=== PATIENT | male | born 1985 | race Caucasian/White ===

== ENCOUNTER 2017-04-04 06:26 | Emergency (ER) | payer MEDICAID ==
[~2017-04-04] VITALS: Ht 172.7 cm; Wt 90.0 kg
[2017-04-04] MEDS ORDERED: ACETAMINOPHEN 500MG TABLET PO ONE (07:00)
[2017-04-04 07:35] VITALS: BP 124/69
== END 2017-04-04 08:06 | disposition home or self-care (01) ==
LOC: ER 06:42
DX: J02.9 Acute pharyngitis, unspecified (principal); Z90.49 Acquired absence of other specified parts of digestive tract
CPT/HCPCS: 99283